=== PATIENT | female | born 1955 | race Caucasian/White ===

== ENCOUNTER 2017-07-16 09:39 | Day surgery (SDC) ==
[2017-07-16] MEDS ORDERED: DIPRIVAN 20 ML VIAL IVP ONE (11:45)
[2017-07-16] MEDS ORDERED: VERSED ONE ×2 (11:45)
[2017-07-16 14:56] VITALS: BP 134/66; TEMP 97.5
--- NOTE | 2017-07-17 09:13 | OP ---
INDICATIONS FOR PROCEDURE: 61-year-old female presents for colonoscopy exam. She has a family history of colon cancer involving her father. She has a history of colonoscopy finding hyperplastic polyp five years ago. MEDICATIONS: SEE ANESTHESIA NOTES. PROCEDURE: COLONOSCOPY TO THE SIGMOID THEN ABORTED. REPORT: The risks, benefits, alternatives and limitations were discussed in detail with the patient. Informed consent was obtained. After adequate sedation was achieved, a digital rectal exam revealed good tone, no masses. The pediatric colonoscope was introduced into the rectum. I was able to advance this through the rectum but once it got to the sigmoid there was a sharp turn just proximal to the rectosigmoid junction. Despite multiple attempts I could not advance the scope around this sharp angulation. I therefore withdrew this scope. I reintubated the rectum with a endoscope. I used a small flexible endoscope to get around this sharp angulation under direct visual guidance but once I got around the sharp angulation there was significant tortuosity in the colon and spasm. There was severe diverticulosis. The scope advanced around the sharp angulation but I could not advance it much further. I advanced it about 4 cm to 5 cm further. Here the sigmoid was fixed, it would not allow advancement of the scope. Again, the lumen was spastic, I could see no mucosal abnormalities other than diverticulosis but even with the upper endoscope I could not advance it around this fixed tortuous sigmoid colon. I then withdrew the scope in a circumferential manner examining the mucosa carefully noting no abnormalities other than the diverticulosis and tortuosity. The patient tolerated this procedure well with stable vital signs and pulse oximetry throughout. IMPRESSION: 1. THICK SIGMOID COLON NOT ALLOWING PASSAGE OF EVEN AN UPPER ENDOSCOPE. 2. SIGMOID DIVERTICULOSIS. RECOMMENDATIONS: 1. I talked to her about pursuing an intercontrast barium enema in the a.m. She will need to stay on a clear liquid diet today and drink one bottle of magnesium citrate four hours prior to procedure in the morning and I will have her drink one bottle of magnesium citrate this evening as well. 2. If the barium enema is unremarkable then consider reattempt at screening colonoscopy or repeat air contrast barium enema in three years. 3. I will have her follow up in the office as needed. CC: DR. CARLOTTA DA SILVA
== END 2017-07-16 13:30 | disposition home or self-care (01) ==
LOC: SURG 09:39
PROVIDERS: ATTEND Internal Medicine Gastroenterology
DX: Z09 Encounter for follow-up examination after completed treatment for conditions other than malignant neoplasm (principal); Z86.010 Personal history of colon polyps; K56.2 Volvulus; Z53.8 Procedure and treatment not carried out for other reasons; Z80.0 Family history of malignant neoplasm of digestive organs; K57.30 Diverticulosis of large intestine without perforation or abscess without bleeding; K58.8 Other irritable bowel syndrome

== ENCOUNTER 2017-07-17 07:42 | Outpatient (CLI) ==
--- NOTE | 2017-07-17 09:43 | DI ---
EXAM: Single contrast barium enema. History: Incomplete colonoscopy. Comparison: None available. Technique: Catheter was inserted into the rectum and the balloon inflated under fluoroscopic guidance . Barium was then allowed to to flow freely through the colon. Multiple spot films were then obtained . Findings: Very irregular moderate length segment of sigmoid colon which made it difficult to pass th e barium. The patient was very uncomfortable and the the irregular stricture was causing a severely distended rectum. The patient could no longer hold the barium and examination was discontinued at thi s point. Some of the contrast did opacify the descending colon and transverse colon with no other obv ious strictures identified. No extravasation of contrast material. Atherosclerotic vascular calcifications. Surgical clips are seen within the left lower quadrant of t he abdomen. Impression: 1. Irregular stricture of the sigmoid colon suspicious for malignancy. Recommend further evaluation with contrast enhanced CT of the abdomen and pelvis.
== END 2017-07-17 07:43 | disposition home or self-care (01) ==
LOC: RAD 07:42
PROVIDERS: ATTEND Internal Medicine Gastroenterology
DX: K62.5 Hemorrhage of anus and rectum (principal); Z85.038 Personal history of other malignant neoplasm of large intestine; Z86.010 Personal history of colon polyps

== ENCOUNTER 2017-07-22 06:22 | Outpatient (CLI) ==
[2017-07-22 06:54] LABS: CREATININE 0.59 mg/dL (0.60-1.30)
--- NOTE | 2017-07-22 09:08 | CT ---
EXAM: CT of the abdomen and pelvis with contrast History: Colonic stricture. Comparison: Barium enema 07/17/2017 Technique: Multiplanar CT images through the abdomen pelvis were obtained following administration o f IV and enteric contrast Findings: Lung bases are free of consolidation. No acute osseous abnormalities. Grade 1 anterolisth esis of L4 on L5 with at least moderate spinal stenosis at this level. There is severe degenerative disc disease at L4-L5. Gallbladder is not seen. There is mild intrahepatic biliary ductal dilatation, which can be expected . Tiny hepatic cysts. The liver is mildly enlarged. Spleen is unremarkable. No renal masses. Griffin creas is within normal limits. Atherosclerotic vascular calcifications. Adrenal glands are unremark able. Wall thickening involving a short segment of sigmoid colon. There is no evidence for bowel ob struction. No bladder wall thickening. No pathologically enlarged lymph nodes. Impression: Wall thickening involving a short segment of sigmoid colon could be infectious/inflammat ory or malignant etiology. Given the appearance on the recent barium enema, a malignancy would be fa vored. Correlate with colonoscopy findings.
== END 2017-07-22 06:23 | disposition home or self-care (01) ==
LOC: RAD 06:22
PROVIDERS: ATTEND Internal Medicine Gastroenterology
DX: Z80.0 Family history of malignant neoplasm of digestive organs (principal)
CPT/HCPCS: 36415; 82565

== ENCOUNTER 2017-08-14 10:37 | Outpatient (CLI) | END 2017-08-14 10:38 | disposition short-term general hospital (02) | LOC: AMBL 10:37 ==